=== PATIENT | female | born 1970 | race Caucasian/White ===

== ENCOUNTER 2020-04-05 07:24 | Emergency (ER) | payer SELFPAY ==
[2020-04-05] MEDS ORDERED: Tetracaine 0.5% OPHTH SOLN/PF 4 ML BOT ONE (07:38)
[2020-04-05] MEDS ORDERED: Fluorescein Opthalmic Strip ONE (07:38)
[2020-04-05] MEDS ORDERED: Neomycin-Polymyxin-Hc 7.5 ML BOT ONE (07:56)
== END 2020-04-05 08:12 | disposition home or self-care (01) ==
LOC: BURERS 07:24
DX: S05.02XA Injury of conjunctiva and corneal abrasion without foreign body, left eye, initial encounter (principal); F17.210 Nicotine dependence, cigarettes, uncomplicated; Z79.899 Other long term (current) drug therapy; X58.XXXA Exposure to other specified factors, initial encounter
CPT/HCPCS: 99283

== ENCOUNTER 2020-06-29 11:16 | Emergency (ER) | payer OTHER, SELFPAY ==
[2020-06-29] MEDS ORDERED: Ketorolac Tromethamine 30 MG/ML VIAL ONE (12:02)
[2020-06-29] MEDS ORDERED: Ondansetron ODT 4 MG TAB ONE (12:02)
[2020-06-30 12:08] LABS: SARS-CoV-2 MS2 Positive; SARS-CoV-2 N Gene Negative; SARS-CoV-2 S Gene Negative; SARS-CoV-2 by NAA Not Detected (NotDetected); SARS-CoV-2 orf1ab Negative
== END 2020-06-29 12:00 | disposition home or self-care (01) ==
LOC: BURERS 11:16
DX: B34.9 Viral infection, unspecified (principal); F17.210 Nicotine dependence, cigarettes, uncomplicated; Z20.828 Contact with and (suspected) exposure to other viral communicable diseases; Z79.899 Other long term (current) drug therapy
CPT/HCPCS: 87635; 87804; 96372; 99283; J1885; Q0162; U0003

== ENCOUNTER 2020-10-03 18:39 | Emergency (ER) | payer SELFPAY ==
[2020-10-03] MEDS ORDERED: Morphine 2 MG/ML VIAL ONE (19:27)
[2020-10-03] MEDS ORDERED: Morphine 4 MG/ML VIAL ONE ×3 (19:28→21:26)
[2020-10-03] MEDS ORDERED: Ondansetron PF 4 MG/2 ML Vial ONE (19:28)
[2020-10-03 19:47] LABS: #Basophils 0.1 thou/uL (0.0-0.2); #Eosinphils 0.2 thou/uL (0.0-0.7); #Monocytes 0.7 thou/uL (0.11-0.59); #Neutrophils 13.9 thou/uL (1.40-6.50); %Basophils 0.8 % (0.0-1.0); %Eosinophils 1.2 % (0.0-10.0); %Lymphocytes 16.4 % (21.0-51.0); %Monocytes 4.1 % (0.0-10.0); %Neutrophils 77.5 % (42.0-75.0); Hemoglobin 13.9 g/dL (12.0-16.0); Mean Corpuscular HGB CONC 32.8 g/dL (32.0-36.0); Mean Corpuscular Hemoglobin 30.6 pg (27.0-31.0); Mean Corpuscular Volume 93.2 fL (78.0-98.0); Mean Platelet Volume 8.4 fL (7.4-10.4); Platelet Count 253 thou/uL (130-400); RBC Distribution Width 11.9 % (11.5-14.5); Red Blood Cell (RBC) Count 4.56 mill/uL (4.20-5.40)
[2020-10-03 19:53] LABS: ALT (SGPT) 20 U/L (8-55); AST (SGOT) 16 U/L (5-34); Albumin 4.3 g/dL (3.5-5.0); Alkaline Phosphatase 101 U/L (40-110); Anion Gap 16 mmol/L (10-20); BUN (Urea Nitrogen) 14 mg/dL (9.8-20.1); Bilirubin, Total 0.4 mg/dL (0.2-1.2); Calc. Creatinine Clearance 0 mL/min (70-130); Carbon Dioxide 22 mmol/L (22-29); Chloride 102 mmol/L (98-107); Globulin 3.1 g/dL (2.4-3.5); Glucose 97 mg/dL (70-105); Lipase 61 U/L (8-78); Potassium 3.9 mmol/L (3.5-5.1); Protein, Total 7.4 g/dL (6.0-8.3); Sodium 136 mmol/L (136-145)
[2020-10-03] MEDS ORDERED: cefTRIAXone\\ROCEPHIN 1 GM VIAL ONE (20:11)
[2020-10-03] MEDS ORDERED: Sodium Chloride 0.9% 100 ML ONE (20:12)
--- NOTE | 2020-10-03 20:16 | CT ---
CT ABDOMEN AND PELVIS WITH CONTRAST 10/03/20 The major finding on the study is that of acute appendicitis. The cecum folds medially towards the mi dline and then the appendix comes off of it and projects back laterally and posteriorly into the righ t lower quadrant. It is 8 to 9 mm wide and has abundant inflammatory change around it. There is mild hyperemia of its vu. I do not see any focal abscess or free air. The remainder of the examination is unremarkable. The lung bases are clear. The liver, spleen, pancre as, adrenal glands, kidneys and abdominal aorta showed no acute changes. There has been a prior seamus cystectomy. There is no distention of bowel to suggest obstruction. No free air or free fluid was present. CT of the pelvis showed no free fluid or inflammatory change in the deep parts of the pelvis. There w as a lucent area in the uterus which could be fluid, cyst or even mass such as fibroid. An elective u ltrasound might be useful. IMPRESSION: 1. Findings consistent with acute appendicitis with abundant surrounding inflammation but no foc al abscess. See description above regarding the cecum and positioning of this appendix. 2. Small lucency in the uterus of uncertain significance. An elective ultrasound in the future c ould be useful. Findings discussed with Dr. Akbar at 2004 on 10/03/20. POS: HOME
[2020-10-03] MEDS ORDERED: metroNIDAZOLE 500 MG/100 ML BAG ONE (20:20)
[2020-10-03 20:43] LABS: Bilirubin Negative (Negative); Blood, Urine Moderate (Negative); Clarity Clear (Clear); Glucose, Urine (Dipstick) Negative (Negative); Ketone, Urine Negative (Negative); Leukocyte Negative (Negative); Nitrite Negative (Negative); Protein, Urine (Dipstick) Negative (Neg-Trace); Urobilinogen 0.2 mg/dL (Less than 2); pH, Urine 5.5 (5.0-9.0)
[2020-10-03 20:45] LABS: Specific Gravity, Urine Greater than 1.030 (1.002-1.036)
[2020-10-03 20:50] LABS: Bacteria/HPF Rare-Few HPF (None Seen); Squamous Epithelial 0-3 HPF (0-3); WBC/HPF 0-3 HPF (0-3)
== END 2020-10-03 21:40 | disposition short-term general hospital (02) ==
LOC: BURERS 18:39
DX: K35.80 Unspecified acute appendicitis (principal); Z79.899 Other long term (current) drug therapy; F17.210 Nicotine dependence, cigarettes, uncomplicated
CPT/HCPCS: 74177; 80053; 81003; 81015; 83605; 83690; 85025; 96365; 96367; 96375; 96376; J0696; J2270; J2405; J3490